=== PATIENT | female | born 1965 | race Caucasian/White ===

== ENCOUNTER 2024-11-17 08:01 | Inpatient (IN) | payer MEDICAID ==
[~2024-11-17] VITALS: Ht 152.4 cm; Wt 87.6 kg
[2024-11-17] MEDS ORDERED: nitroGLYCERIN 0.4mg SUBLingual tab SL PRN (08:30)
[2024-11-17 08:43] LABS: LYMPHOCYTES # (AUTO) 0.1 X10'3 (1.1-4.8); MEAN CORPUSCULAR HGB CONC 33.3 g/dL (33.0-36.5); WHITE BLOOD COUNT 1.9 X10'3 (4.5-11.0)
[2024-11-17 08:46] LABS: BASOPHILS % (AUTO) 0.2 % (0-1); EOSINOPHILS % (AUTO) 0.1 % (0-6); HEMOGLOBIN 17.3 g/dl (12.0-16.0); LYMPHOCYTES % (AUTO) 6.7 % (21-51); MEAN PLATELET VOLUME 7.9 FL (7.4-10.4); MONOCYTES % (AUTO) 0.5 % (2-12); NEUTROPHILS # (AUTO) 1.8 X10'3 (1.8-7.7); NEUTROPHILS % (AUTO) 92.5 % (42-75); PLATELET COUNT 265 X10'3 (140-440); RED BLOOD COUNT 5.98 X10'6 (4.20-5.60); RED CELL DISTRIBUTION WIDTH 14.3 % (11.5-14.5)
[2024-11-17] MEDS ORDERED: PRAM0.5T12 PO (09:00)
[2024-11-17] MEDS ORDERED: LISI40TA13 PO (09:00)
[2024-11-17] MEDS ORDERED: SEMA1.7P SQ (09:00)
[2024-11-17] MEDS ORDERED: PARO30TA4 PO (09:00)
[2024-11-17] MEDS ORDERED: GABA-530 PO (09:00)
[2024-11-17] MEDS ORDERED: HYDR12.55 PO (09:00)
[2024-11-17] MEDS ORDERED: CYCL-920 PO (09:00)
[2024-11-17] MEDS ORDERED: ASPI-611 PO (09:00)
[2024-11-17 09:03] LABS: ALBUMIN 4.3 G/DL (3.4-5.0); ANION GAP 12 (8-16); BLOOD UREA NITROGEN 17 MG/DL (7-18); BUN/CREATININE RATIO 18.1 (10.0-20.0); CALCIUM 9.6 MG/DL (8.5-10.1); CHLORIDE 101 MMOL/L (99-107); CREATININE 0.94 MG/DL (0.40-0.90); GLUCOSE 108 MG/DL (70-104); MAGNESIUM 1.7 MG/DL (1.5-2.4); POTASSIUM 3.3 MMOL/L (3.5-5.1); PRO BRAIN NATRIURETIC PEPTIDE 61 PG/ML (0-125); SODIUM 141 MMOL/L (135-145); TOTAL CARBON DIOXIDE 27.6 MMOL/L (24-32); eCRCL 46 ML/MIN; eGFR 61 ML/MIN
[2024-11-17] MEDS: metoprolol tartrate 50mg tablet PO ONE (09:07)
[2024-11-17] MEDS: aspirin 81mg tab.chew PO ONE (09:08)
[2024-11-17] MEDS: nitroGLYCERIN 0.4mg SUBLingual tab SL PRN (09:15)
[2024-11-17] MEDS: aspirin 325mg tablet, delayed-release (Ecotrin) PO ONE (09:20)
[2024-11-17 09:40] LABS: TOTAL CELLS COUNTED 100
[2024-11-17 09:41] LABS: PLATELET ESTIMATE NORMAL
[2024-11-17] MEDS: ondansetron 4mg rapidly disintigrating tab PO ONE (10:01)
[2024-11-17 10:18] LABS: ALANINE AMINOTRANSFERASE 888 U/L (12-78); ALBUMIN/GLOBULIN RATIO 1.2 (1.1-1.5); ALKALINE PHOSPHATASE 229 IU/L (46-116); BILIRUBIN,TOTAL 3.1 MG/DL (0.1-1.0); TOTAL PROTEIN 7.8 G/DL (6.4-8.2)
[2024-11-17 10:58] LABS: ASPARTATE AMINO TRANSFERASE 2165 U/L (10-37)
[2024-11-17] MEDS: normal saline 1000ml 1,000 ML IV ONE ×2 (12:11→17:04)
[2024-11-17] MEDS: piperacillin/tazo 3.375gm/50ml 50 ML IV ONE (12:12)
[2024-11-17] MEDS: acetaminophen 325mg tablet PO ONE (13:30)
[2024-11-17] MEDS ORDERED: iohexol 300mg/ml 100ml inj. ONE (15:19)
[2024-11-17 15:59] LABS: ALANINE AMINOTRANSFERASE 999 U/L (12-78); ALBUMIN 3.2 G/DL (3.4-5.0); ALBUMIN/GLOBULIN RATIO 1.2 (1.1-1.5); ALKALINE PHOSPHATASE 173 IU/L (46-116); ANION GAP 9 (8-16); BILIRUBIN,TOTAL 3.7 MG/DL (0.1-1.0); BLOOD UREA NITROGEN 22 MG/DL (7-18); BUN/CREATININE RATIO 19.5 (10.0-20.0); CALCIUM 8.4 MG/DL (8.5-10.1); CHLORIDE 106 MMOL/L (99-107); CREATININE 1.13 MG/DL (0.40-0.90); GLUCOSE 123 MG/DL (70-104); SODIUM 142 MMOL/L (135-145); TOTAL CARBON DIOXIDE 27.1 MMOL/L (24-32); TOTAL PROTEIN 5.9 G/DL (6.4-8.2); eCRCL 38 ML/MIN; eGFR 49 ML/MIN
[2024-11-17 16:04] LABS: ASPARTATE AMINO TRANSFERASE 1718 U/L (10-37)
[2024-11-17] MEDS ORDERED: magnesium hydroxide 30ml (MOM) UD suspension PO PRN (17:25)
[2024-11-17] MEDS ORDERED: acetaminophen 325mg tablet PO PRN ×3 (17:25→20:25)
[2024-11-17] MEDS ORDERED: magnesium sulf-water 2g/50mL 50 ML IV PRN (17:25)
[2024-11-17] MEDS ORDERED: potassium Cl 40MEQ/1/2NS 520ml 520 ML IV PRN (17:25)
[2024-11-17] MEDS ORDERED: ondansetron 4mg rapidly disintigrating tab PO PRN (17:25)
[2024-11-17] MEDS ORDERED: magnesium sulf-water 4G/100mL 100 ML IV PRN (17:25)
[2024-11-17] MEDS ORDERED: potassium Cl 20 mEq SR tablet PO PRN (17:25)
[2024-11-17] MEDS: potassium cl 20mEq in 1/2 NS 1,000 ML IV SCH (17:25)
[2024-11-17] MEDS ORDERED: diphenhydrAMINE 50 mg/ml inj IV PRN (17:25)
[2024-11-17] MEDS ORDERED: magnesium Cl slow-release 64mg tablet PO PRN (17:25)
[2024-11-17] MEDS ORDERED: ondansetron/PF 4mg/2ml inj IV PRN (17:25)
[2024-11-17] MEDS ORDERED: morphine 2 MG/ML inj. syringe IV PRN ×2 (17:25)
[2024-11-17] MEDS ORDERED: mag hydrox/Alum hydrox/simeth 30ml oral suspension PO PRN (17:25)
[2024-11-17] MEDS ORDERED: bisacodyl 10mg suppository rectal RC PRN (17:25)
[2024-11-17] MEDS ORDERED: HYDROcodone/acetaminophen 5mg/325mg tablet PO PRN (17:25)
[2024-11-17] MEDS ORDERED: diphenhydrAMINE 25mg capsule PO PRN (17:25)
[2024-11-17] MEDS ORDERED: HYDROcodone/acetaminophen 10/325mg tab PO PRN (17:25)
[2024-11-17 18:13] LABS: BILIRUBIN,URINE MODERATE (Neg); CLARITY,URINE SLIGHTLY CLOUDY (Clear); GLUCOSE, URINE NEGATIVE (Neg); KETONES,URINE TRACE mg/dl (Neg); LEUKOCYTE ESTERASE ,URINE NEGATIVE (Neg); NITRITES, URINE NEGATIVE (Neg); OCCULT BLOOD,URINE NEGATIVE (Neg); PROTEIN,URINE 100 mg/dl (Neg)
[2024-11-17 18:17] LABS: URINE AMPHETAMINE SCREEN NEGATIVE (Neg); URINE BARBITUATE SCREEN NEGATIVE (Neg); URINE BENZODIAZEPINES SCREEN NEGATIVE (Neg); URINE CANNABINOID SCREEN POSITIVE (Neg); URINE COCAINE SCREEN NEGATIVE (Neg); URINE METHADONE SCREEN NEGATIVE (Neg); URINE OPIATE SCREEN NEGATIVE (Neg); URINE PHENCYCLIDINE SCREEN NEGATIVE (Neg)
[2024-11-17 18:25] LABS: COLOR,URINE DARK YELLOW (Yellow); UA COLLECTION TYPE NON-SPECIFIED
[2024-11-17 18:26] LABS: BACTERIA,URINE 1+ /HPF (Neg); RENAL CELLS, URINE FEW /HPF; SQUAMOUS EPITHELIAL CELL,UR MANY /LPF (FEW); TRANSITIONAL EPI CELLS,URINE FEW /HPF; WBC,URINE 0-4 /HPF (0-4)
[2024-11-17 18:27] LABS: MUCUS STRANDS MODERATE /LPF (Neg)
[2024-11-17 18:28] LABS: APTT 26 SECONDS (22-32); INR 1.1 INR; PROTHROMBIN TIME 11.9 SECONDS (9.0-12.0)
[2024-11-17 18:39] LABS: HEMOGLOBIN A1C 5.5 % (4.5-6.2)
[2024-11-17 18:48] LABS: ACETAMINOPHEN 2.6 UG/ML (10-30); ALANINE AMINOTRANSFERASE 940 U/L (12-78); ALBUMIN 2.9 G/DL (3.4-5.0); ALBUMIN/GLOBULIN RATIO 1.1 (1.1-1.5); ALKALINE PHOSPHATASE 153 IU/L (46-116); BILIRUBIN,TOTAL 3.9 MG/DL (0.1-1.0); CREATINE KINASE 82 U/L (26-192); FERRITIN 455 NG/ML (8-252); LIPASE 39 U/L (16-77); MAGNESIUM 2.1 MG/DL (1.5-2.4); PRO BRAIN NATRIURETIC PEPTIDE 579 PG/ML (0-125); THYROID STIMULATING HORMONE 0.81 ulU/ml (0.34-4.50); TOTAL PROTEIN 5.6 G/DL (6.4-8.2)
[2024-11-17 18:52] LABS: ASPARTATE AMINO TRANSFERASE 1465 U/L (10-37)
[2024-11-17 18:59] LABS: HIV ANTIBODY 1&2 RAPID NON-REACTIVE (Neg)
[2024-11-17 19:15] LABS: C-REACTIVE PROTEIN 8.19 MG/DL (0.0-0.5); LACTATE DEHYDROGENASE 563 U/L (81-234)
[2024-11-17] MEDS: normal saline 1000ml 1,000 ML IV SCH (19:55)
[2024-11-17 20:00] VITALS: RESP 19; O2SAT 97
[2024-11-17] MEDS: K and/or MAG REPLACEMENT MC SCH (20:27)
[2024-11-17] MEDS: piperacillin/tazo 4.5gm/100ml 100 ML IV SCH (20:32)
[2024-11-17] MEDS: docusate sod 100mg capsule PO SCH (20:32)
[2024-11-17] MEDS: heparin, porcine 5000 units/ml vial SQ SCH (20:32)
[2024-11-17 20:37] LABS: TOTAL CELLS COUNTED 100
[2024-11-17] MEDS: acetaminophen 325mg tablet PO PRN (20:41)
[2024-11-17 22:00] VITALS: BP 120/63; PULSE 88; RESP 14; TEMP 97.8; O2SAT 97
[2024-11-17] MEDS ORDERED: pramipexole 0.25mg tablet PO PRN (22:40)
[2024-11-17] MEDS: temazepam 15mg capsule PO PRN (23:02)
[2024-11-17] MEDS: gabapentin 100mg capsule PO SCH (23:12)
[2024-11-17] MEDS: lisinopril 20mg tablet PO SCH (23:13)
[2024-11-17] MEDS: PARoxetine 10mg tablet PO SCH (23:14)
[2024-11-18 02:00] VITALS: BP 110/68; PULSE 69; RESP 19; TEMP 98; O2SAT 98
[2024-11-18 06:30] VITALS: BP 104/68; PULSE 80; RESP 20; TEMP 97.8; O2SAT 96
[2024-11-18 07:54] LABS: BASOPHILS % (AUTO) 0.1 % (0-1); EOSINOPHILS # (AUTO) 0.1 X10'3 (0-0.9); EOSINOPHILS % (AUTO) 0.7 % (0-6); HEMATOCRIT 37.3 % (35.0-45.0); LYMPHOCYTES # (AUTO) 0.4 X10'3 (1.1-4.8); LYMPHOCYTES % (AUTO) 4.5 % (21-51); MEAN CORPUSCULAR HEMOGLOBIN 28.9 PG (27.0-31.0); MEAN CORPUSCULAR VOLUME 87.6 FL (78-98); MEAN PLATELET VOLUME 8.1 FL (7.4-10.4); MONOCYTES # (AUTO) 0.5 X10'3 (0-0.9); NEUTROPHILS # (AUTO) 8.1 X10'3 (1.8-7.7); NEUTROPHILS % (AUTO) 89.7 % (42-75); PLATELET COUNT 180 X10'3 (140-440); RED BLOOD COUNT 4.25 X10'6 (4.20-5.60); RED CELL DISTRIBUTION WIDTH 14.5 % (11.5-14.5); WHITE BLOOD COUNT 9.1 X10'3 (4.5-11.0)
[2024-11-18 07:56] LABS: HEMOGLOBIN 12.3 g/dl (12.0-16.0)
[2024-11-18 08:16] LABS: ALANINE AMINOTRANSFERASE 641 U/L (12-78); ALBUMIN 2.6 G/DL (3.4-5.0); ALKALINE PHOSPHATASE 104 IU/L (46-116); ANION GAP 7 (8-16); ASPARTATE AMINO TRANSFERASE 564 U/L (10-37); BILIRUBIN,TOTAL 4.4 MG/DL (0.1-1.0); BLOOD UREA NITROGEN 14 MG/DL (7-18); BUN/CREATININE RATIO 15.9 (10.0-20.0); CALCIUM 7.5 MG/DL (8.5-10.1); CHLORIDE 108 MMOL/L (99-107); CREATININE 0.88 MG/DL (0.40-0.90); GLUCOSE 94 MG/DL (70-104); HDL CHOLESTEROL 48 MG/DL (35-60); LDL CHOLESTEROL 29 MG/DL (50-100); MAGNESIUM 1.7 MG/DL (1.5-2.4); POTASSIUM 3.4 MMOL/L (3.5-5.1); SODIUM 141 MMOL/L (135-145); TOTAL CARBON DIOXIDE 25.8 MMOL/L (24-32); eCRCL 49 ML/MIN; eGFR 66 ML/MIN
[2024-11-18 08:17] LABS: CHOL/HDL RATIO 1.7 (0.00-4.99); CHOLESTEROL 82 MG/DL (0-200); TOTAL PROTEIN 5.3 G/DL (6.4-8.2); TRIGLYCERIDES 68 MG/DL (20-135)
[2024-11-18] MEDS: pantoprazole 40MG/NS 100ML BAG 100 ML IV SCH (09:08)
[2024-11-18] MEDS: aspirin 81mg, enteric-coated 1 TAB TABLET.DR PO SCH (09:12)
[2024-11-18] MEDS: HYDROchlorothiazide 12.5mg capsule PO SCH (09:12)
[2024-11-18] MEDS: cyclobenzaprine 10mg tablet PO SCH (09:14)
[2024-11-18 11:00] VITALS: BP 99/49; PULSE 83; RESP 16; TEMP 97.6; O2SAT 97
[2024-11-18] MEDS: potassium Cl 20 mEq SR tablet PO PRN (11:13)
[2024-11-18] MEDS ORDERED: SIMV-42 PO (12:24)
[2024-11-18 15:00] VITALS: BP 112/66; PULSE 84; RESP 19; TEMP 98.2; O2SAT 99
[2024-11-18 18:00] VITALS: BP 120/56; PULSE 83; RESP 19; TEMP 98.2; O2SAT 98
[2024-11-18] MEDS: pramipexole 0.25mg tablet PO SCH (21:40)
[2024-11-18 22:00] VITALS: BP 127/71; PULSE 77; RESP 18; TEMP 97.9; O2SAT 96
[2024-11-19 02:00] VITALS: BP 148/71; PULSE 77; RESP 20; TEMP 97.6; O2SAT 100
[2024-11-19 06:10] LABS: BASOPHILS % (AUTO) 0.3 % (0-1); EOSINOPHILS # (AUTO) 0.2 X10'3 (0-0.9); EOSINOPHILS % (AUTO) 2.5 % (0-6); HEMATOCRIT 37.7 % (35.0-45.0); HEMOGLOBIN 12.5 g/dl (12.0-16.0); LYMPHOCYTES # (AUTO) 0.7 X10'3 (1.1-4.8); LYMPHOCYTES % (AUTO) 9.8 % (21-51); MEAN CORPUSCULAR HEMOGLOBIN 28.8 PG (27.0-31.0); MEAN CORPUSCULAR HGB CONC 33.2 g/dL (33.0-36.5); MEAN CORPUSCULAR VOLUME 86.6 FL (78-98); MEAN PLATELET VOLUME 8.5 FL (7.4-10.4); MONOCYTES # (AUTO) 0.4 X10'3 (0-0.9); MONOCYTES % (AUTO) 6.2 % (2-12); NEUTROPHILS # (AUTO) 5.7 X10'3 (1.8-7.7); NEUTROPHILS % (AUTO) 81.2 % (42-75); PLATELET COUNT 151 X10'3 (140-440); RED BLOOD COUNT 4.35 X10'6 (4.20-5.60); RED CELL DISTRIBUTION WIDTH 14.5 % (11.5-14.5)
[2024-11-19 06:30] VITALS: BP 157/84; PULSE 80; RESP 20; TEMP 98; O2SAT 97
[2024-11-19 06:40] LABS: ALANINE AMINOTRANSFERASE 420 U/L (12-78); ALBUMIN 2.5 G/DL (3.4-5.0); ALBUMIN/GLOBULIN RATIO 0.9 (1.1-1.5); ALKALINE PHOSPHATASE 122 IU/L (46-116); ANION GAP 7 (8-16); ASPARTATE AMINO TRANSFERASE 261 U/L (10-37); BILIRUBIN,TOTAL 2.8 MG/DL (0.1-1.0); BLOOD UREA NITROGEN 9 MG/DL (7-18); BUN/CREATININE RATIO 11.4 (10.0-20.0); CHLORIDE 106 MMOL/L (99-107); CREATININE 0.79 MG/DL (0.40-0.90); GLUCOSE 86 MG/DL (70-104); MAGNESIUM 1.9 MG/DL (1.5-2.4); POTASSIUM 3.8 MMOL/L (3.5-5.1); SODIUM 139 MMOL/L (135-145); TOTAL CARBON DIOXIDE 26.1 MMOL/L (24-32); TOTAL PROTEIN 5.4 G/DL (6.4-8.2); eCRCL 54 ML/MIN; eGFR 74 ML/MIN
[2024-11-19 09:09] LABS: TRANSFERRIN 258 mg/dL (192-364)
[2024-11-19 11:00] VITALS: BP 152/82; PULSE 71; RESP 17; TEMP 97.4; O2SAT 98
[2024-11-19 12:46] LABS: HBSAG SCREEN Negative (Negative); HEP A AB, IGM Negative (Negative); HEP B CORE AB, IGM Negative (Negative); HEP B CORE AB, TOT Negative (Negative); HEPATITIS C VIRUS ANTIBODY Non Reactive (Non Reactive)
[2024-11-19 15:00] VITALS: BP 134/67; PULSE 67; RESP 18; TEMP 97.5; O2SAT 96
[2024-11-19 18:00] VITALS: BP 143/72; PULSE 72; RESP 10; TEMP 98.5; O2SAT 99
[2024-11-19 22:00] VITALS: BP 121/61; PULSE 78; RESP 16; TEMP 97.2; O2SAT 99
[2024-11-20] VITALS (7 sets, daily range): BP systolic 113–174; BP diastolic 79–86; PULSE 70–84; RESP 12–22; TEMP 97–97.6; O2SAT 96–99
[2024-11-20 06:28] LABS: BASOPHILS % (AUTO) 0.5 % (0-1); EOSINOPHILS # (AUTO) 0.2 X10'3 (0-0.9); EOSINOPHILS % (AUTO) 2.9 % (0-6); HEMATOCRIT 39.4 % (35.0-45.0); HEMOGLOBIN 13.1 g/dl (12.0-16.0); LYMPHOCYTES # (AUTO) 0.8 X10'3 (1.1-4.8); LYMPHOCYTES % (AUTO) 13.4 % (21-51); MEAN CORPUSCULAR HEMOGLOBIN 29.1 PG (27.0-31.0); MEAN CORPUSCULAR HGB CONC 33.3 g/dL (33.0-36.5); MEAN CORPUSCULAR VOLUME 87.2 FL (78-98); MEAN PLATELET VOLUME 8.9 FL (7.4-10.4); MONOCYTES # (AUTO) 0.5 X10'3 (0-0.9); MONOCYTES % (AUTO) 9.5 % (2-12); NEUTROPHILS # (AUTO) 4.2 X10'3 (1.8-7.7); NEUTROPHILS % (AUTO) 73.7 % (42-75); PLATELET COUNT 174 X10'3 (140-440); RED BLOOD COUNT 4.52 X10'6 (4.20-5.60); RED CELL DISTRIBUTION WIDTH 14.5 % (11.5-14.5); WHITE BLOOD COUNT 5.7 X10'3 (4.5-11.0)
[2024-11-20 08:00] LABS: ALANINE AMINOTRANSFERASE 318 U/L (12-78); ALBUMIN 2.6 G/DL (3.4-5.0); ALBUMIN/GLOBULIN RATIO 0.8 (1.1-1.5); ALKALINE PHOSPHATASE 172 IU/L (46-116); ANION GAP 8 (8-16); ASPARTATE AMINO TRANSFERASE 125 U/L (10-37); BILIRUBIN,TOTAL 2.1 MG/DL (0.1-1.0); BLOOD UREA NITROGEN 9 MG/DL (7-18); BUN/CREATININE RATIO 13.2 (10.0-20.0); CALCIUM 8.7 MG/DL (8.5-10.1); CHLORIDE 105 MMOL/L (99-107); CREATININE 0.68 MG/DL (0.40-0.90); GLUCOSE 98 MG/DL (70-104); MAGNESIUM 1.9 MG/DL (1.5-2.4); POTASSIUM 3.9 MMOL/L (3.5-5.1); SODIUM 138 MMOL/L (135-145); TOTAL CARBON DIOXIDE 25.1 MMOL/L (24-32); TOTAL PROTEIN 5.8 G/DL (6.4-8.2); eCRCL 63 ML/MIN; eGFR 88 ML/MIN
[2024-11-20] MEDS: sincalide inj 1.7 MCG in normal saline 100ml IV soln 100 ML IV ONE (11:27)
[2024-11-20] MEDS: sincalide inj 1.7 MCG in normal saline 100ml IV soln 98.3 ML IV ONE (11:32)
[2024-11-21] VITALS (16 sets, daily range): BP systolic 124–178; BP diastolic 53–90; PULSE 67–84; RESP 10–17; TEMP 97–97.9; O2SAT 92–100
[2024-11-21 05:08] LABS: COPPER/CRT RATIO 170 ug/g creat (0-49)
[2024-11-21 06:19] LABS: BASOPHILS % (AUTO) 0.8 % (0-1); EOSINOPHILS # (AUTO) 0.1 X10'3 (0-0.9); EOSINOPHILS % (AUTO) 3.2 % (0-6); HEMATOCRIT 43.7 % (35.0-45.0); HEMOGLOBIN 14.5 g/dl (12.0-16.0); MEAN CORPUSCULAR HEMOGLOBIN 28.8 PG (27.0-31.0); MEAN CORPUSCULAR HGB CONC 33.1 g/dL (33.0-36.5); MEAN PLATELET VOLUME 8.3 FL (7.4-10.4); MONOCYTES # (AUTO) 0.8 X10'3 (0-0.9); MONOCYTES % (AUTO) 16.3 % (2-12); NEUTROPHILS # (AUTO) 2.7 X10'3 (1.8-7.7); NEUTROPHILS % (AUTO) 58.7 % (42-75); PLATELET COUNT 217 X10'3 (140-440); RED BLOOD COUNT 5.02 X10'6 (4.20-5.60); RED CELL DISTRIBUTION WIDTH 14.8 % (11.5-14.5); WHITE BLOOD COUNT 4.7 X10'3 (4.5-11.0)
[2024-11-21 07:40] LABS: PLATELET ESTIMATE NORMAL; TOTAL CELLS COUNTED 100
[2024-11-21 08:32] LABS: ALANINE AMINOTRANSFERASE 247 U/L (12-78); ALBUMIN 2.7 G/DL (3.4-5.0); ALBUMIN/GLOBULIN RATIO 0.8 (1.1-1.5); ALKALINE PHOSPHATASE 182 IU/L (46-116); ASPARTATE AMINO TRANSFERASE 83 U/L (10-37); BILIRUBIN,TOTAL 1.5 MG/DL (0.1-1.0); CALCIUM 8.7 MG/DL (8.5-10.1); MAGNESIUM 1.9 MG/DL (1.5-2.4); TOTAL CARBON DIOXIDE 28.7 MMOL/L (24-32); TOTAL PROTEIN 6.3 G/DL (6.4-8.2)
[2024-11-21 08:37] LABS: ANION GAP 7 (8-16); BLOOD UREA NITROGEN 8 MG/DL (7-18); BUN/CREATININE RATIO 12.7 (10.0-20.0); CHLORIDE 104 MMOL/L (99-107); CREATININE 0.63 MG/DL (0.40-0.90); GLUCOSE 96 MG/DL (70-104); POTASSIUM 3.5 MMOL/L (3.5-5.1); SODIUM 140 MMOL/L (135-145); eCRCL 68 ML/MIN; eGFR > 90 ML/MIN
[2024-11-21] MEDS ORDERED: HYDROmorphone/PF 0.2 MG/ML SYRINGE IV PRN (18:30)
[2024-11-21] MEDS ORDERED: meperidine/PF 25mg/ml syringe IV PRN ×2 (18:30)
[2024-11-21] MEDS ORDERED: ondansetron/PF 4mg/2ml inj IV PRN (18:30)
[2024-11-21] MEDS ORDERED: BUPIVAcaine 2.5mg/ml inj 50ml vial (contains preservative) ONE (18:53)
[2024-11-21] MEDS ORDERED: fentaNYL /PF 50mcg/ml 5ml ampule ONE (19:43)
[2024-11-21] MEDS ORDERED: rocuronium 10mg/ml inj IV ONE ×2 (19:43→21:25)
[2024-11-21] MEDS ORDERED: midazolam 1 mg/ML 2ml injection ONE (19:43)
[2024-11-21] MEDS ORDERED: propofol inj 20 ML IV ONE (19:43)
[2024-11-21] MEDS ORDERED: dexamethasone sod phosphate 4mg/ml inj. ONE (20:20)
[2024-11-21] MEDS ORDERED: ondansetron/PF 4mg/2ml inj ONE (20:20)
[2024-11-21] MEDS ORDERED: neostigmine methylsulfate 1 MG/ML 10ml vial ONE (21:25)
[2024-11-21] MEDS ORDERED: glycopyrrolate 0.2mg/ml inj ONE (21:26)
[2024-11-21] MEDS ORDERED: sugammadex 200mg/2ml injection IV ONE (21:46)
[2024-11-21] MEDS ORDERED: naloxone 0.4 mg/ml inj IV PRN (21:50)
[2024-11-21] MEDS: HYDROmorphone/PF 0.2 MG/ML SYRINGE IV PRN (22:18)
[2024-11-21] MEDS: acetaminophen 1,000mg/100ml IV 100 ML IV ONE (22:29)
[2024-11-21] MEDS: labetalol 20mg/4ml (5mg/ml) syringe IV PRN (22:30)
[2024-11-21] MEDS: meperidine/PF 25mg/ml syringe IV PRN (22:31)
[2024-11-22] VITALS (12 sets, daily range): BP systolic 106–144; BP diastolic 53–74; PULSE 57–95; RESP 11–25; TEMP 97–98.1; O2SAT 93–98
[2024-11-22] MEDS: oxyCODONE/APAP 5-325mg tablet PO PRN (00:25)
[2024-11-22] MEDS: traMADol 50MG tablet PO PRN (03:15)
[2024-11-22 06:12] LABS: BASOPHILS % (AUTO) 0.1 % (0-1); EOSINOPHILS % (AUTO) 0.2 % (0-6); HEMOGLOBIN 14.1 g/dl (12.0-16.0); LYMPHOCYTES % (AUTO) 7.9 % (21-51); MEAN PLATELET VOLUME 8.7 FL (7.4-10.4); MONOCYTES # (AUTO) 0.8 X10'3 (0-0.9); MONOCYTES % (AUTO) 6.2 % (2-12); NEUTROPHILS # (AUTO) 11.1 X10'3 (1.8-7.7); NEUTROPHILS % (AUTO) 85.6 % (42-75); PLATELET COUNT 206 X10'3 (140-440); RED BLOOD COUNT 4.51 X10'6 (4.20-5.60); RED CELL DISTRIBUTION WIDTH 14.7 % (11.5-14.5)
[2024-11-22 06:39] LABS: HEMATOCRIT 43.2 % (35.0-45.0); MEAN CORPUSCULAR HEMOGLOBIN 28.5 PG (27.0-31.0); MEAN CORPUSCULAR HGB CONC 32.7 g/dL (33.0-36.5); MEAN CORPUSCULAR VOLUME 87.1 FL (78-98)
[2024-11-22 06:44] LABS: ALANINE AMINOTRANSFERASE 232 U/L (12-78); ALBUMIN 2.6 G/DL (3.4-5.0); ALBUMIN/GLOBULIN RATIO 0.7 (1.1-1.5); ALKALINE PHOSPHATASE 175 IU/L (46-116); ANION GAP 8 (8-16); ASPARTATE AMINO TRANSFERASE 121 U/L (10-37); BILIRUBIN,TOTAL 1.3 MG/DL (0.1-1.0); BLOOD UREA NITROGEN 8 MG/DL (7-18); BUN/CREATININE RATIO 9.5 (10.0-20.0); CALCIUM 8.6 MG/DL (8.5-10.1); CHLORIDE 100 MMOL/L (99-107); CREATININE 0.84 MG/DL (0.40-0.90); GLUCOSE 147 MG/DL (70-104); POTASSIUM 4.7 MMOL/L (3.5-5.1); SODIUM 136 MMOL/L (135-145); TOTAL CARBON DIOXIDE 27.8 MMOL/L (24-32); TOTAL PROTEIN 6.3 G/DL (6.4-8.2); eCRCL 51 ML/MIN; eGFR 69 ML/MIN
[2024-11-22] MEDS: ringers solution, lacted 1,000 ML IV SCH (07:27)
[2024-11-22] MEDS: pantoprazole 40mg Tablet.DR PO SCH (07:29)
[2024-11-23 02:00] VITALS: BP 111/59; PULSE 73; RESP 23; TEMP 96.9; O2SAT 95
[2024-11-23 06:00] VITALS: BP 129/69; PULSE 74; RESP 16; TEMP 97.6; O2SAT 96
[2024-11-23 07:44] LABS: BASOPHILS % (AUTO) 0.4 % (0-1); EOSINOPHILS # (AUTO) 0.1 X10'3 (0-0.9); EOSINOPHILS % (AUTO) 0.6 % (0-6); HEMATOCRIT 35.5 % (35.0-45.0); HEMOGLOBIN 11.9 g/dl (12.0-16.0); LYMPHOCYTES # (AUTO) 1.7 X10'3 (1.1-4.8); LYMPHOCYTES % (AUTO) 16.6 % (21-51); MEAN CORPUSCULAR HEMOGLOBIN 28.9 PG (27.0-31.0); MEAN CORPUSCULAR HGB CONC 33.6 g/dL (33.0-36.5); MEAN CORPUSCULAR VOLUME 85.9 FL (78-98); MONOCYTES # (AUTO) 1.3 X10'3 (0-0.9); MONOCYTES % (AUTO) 12.9 % (2-12); NEUTROPHILS % (AUTO) 69.5 % (42-75); PLATELET COUNT 223 X10'3 (140-440); RED BLOOD COUNT 4.14 X10'6 (4.20-5.60); RED CELL DISTRIBUTION WIDTH 15.2 % (11.5-14.5); WHITE BLOOD COUNT 10.1 X10'3 (4.5-11.0)
[2024-11-23 07:56] VITALS: RESP 18
[2024-11-23 08:18] LABS: ALANINE AMINOTRANSFERASE 151 U/L (12-78); ALBUMIN 2.5 G/DL (3.4-5.0); ALBUMIN/GLOBULIN RATIO 0.8 (1.1-1.5); ALKALINE PHOSPHATASE 135 IU/L (46-116); ANION GAP 5 (8-16); ASPARTATE AMINO TRANSFERASE 48 U/L (10-37); BILIRUBIN,TOTAL 0.8 MG/DL (0.1-1.0); BLOOD UREA NITROGEN 6 MG/DL (7-18); BUN/CREATININE RATIO 7.9 (10.0-20.0); CALCIUM 8.4 MG/DL (8.5-10.1); CHLORIDE 104 MMOL/L (99-107); CREATININE 0.76 MG/DL (0.40-0.90); POTASSIUM 3.2 MMOL/L (3.5-5.1); SODIUM 139 MMOL/L (135-145); TOTAL CARBON DIOXIDE 30.4 MMOL/L (24-32); TOTAL PROTEIN 5.8 G/DL (6.4-8.2); eCRCL 57 ML/MIN; eGFR 78 ML/MIN
[2024-11-23 08:24] LABS: GLUCOSE 105 MG/DL (70-104)
[2024-11-23] MEDS ORDERED: magnesium sulf-water 4G/100mL 100 ML IV PRN (10:40)
[2024-11-23] MEDS ORDERED: potassium Cl 20 mEq SR tablet PO PRN (10:40)
[2024-11-23] MEDS ORDERED: potassium Cl 40MEQ/1/2NS 520ml 520 ML IV PRN (10:40)
[2024-11-23] MEDS ORDERED: magnesium sulf-water 2g/50mL 50 ML IV PRN (10:40)
[2024-11-23] MEDS ORDERED: magnesium Cl slow-release 64mg tablet PO PRN (10:40)
[2024-11-23 10:57] LABS: MAGNESIUM 1.6 MG/DL (1.5-2.4)
[2024-11-23] MEDS: potassium Cl 20 mEq SR tablet PO PRN (10:58)
[2024-11-23] MEDS: oxyCODONE/APAP 5-325mg tablet PO ONE (10:59)
[2024-11-23] MEDS ORDERED: MAGN400O6 PO (14:38)
[2024-11-23] MEDS ORDERED: PER5325T PO (14:38)
[2024-11-23 15:01] VITALS: RESP 16
[2024-11-23] MEDS: oxyCODONE/APAP 10/325mg tablet PO PRN (15:01)
[2024-11-23] MEDS: potassium Cl 20 mEq SR tablet PO ONE (15:02)
[2024-11-23] MEDS: magnesium hydroxide 30ml (MOM) UD suspension PO SCH (15:02)
[2024-11-23] MEDS ORDERED: POTA-192 PO (18:51)
[2024-11-23] MEDS ORDERED: K and/or MAG REPLACEMENT MC SCH (20:00)
== END 2024-11-23 16:12 | disposition home or self-care (01) | DRG 710 ==
LOC: ER 08:02 → ED HOLD 17:31 → PCU 3S 22:01
PROVIDERS: ADMIT Family Medicine; ATTEND Family Medicine
PROC: 8E0W4CZ Robotic Assisted Procedure of Trunk Region, Percutaneous Endoscopic Approach (ICD-10-PCS; 2024-11-21)
PROC: 0FT44ZZ Resection of Gallbladder, Percutaneous Endoscopic Approach (ICD-10-PCS; principal; 2024-11-21 19:36)
DX: A41.9 Sepsis, unspecified organism (principal); N17.9 Acute kidney failure, unspecified; K80.12 Calculus of gallbladder with acute and chronic cholecystitis without obstruction; E87.20 Acidosis, unspecified; K76.0 Fatty (change of) liver, not elsewhere classified; B17.9 Acute viral hepatitis, unspecified; E66.9 Obesity, unspecified; D75.1 Secondary polycythemia; R79.89 Other specified abnormal findings of blood chemistry; E86.0 Dehydration; E87.6 Hypokalemia; G89.4 Chronic pain syndrome; N18.9 Chronic kidney disease, unspecified; I12.9 Hypertensive chronic kidney disease with stage 1 through stage 4 chronic kidney disease, or unspecified chronic kidney disease; Z79.82 Long term (current) use of aspirin; Z79.899 Other long term (current) drug therapy; Z68.36 Body mass index [BMI] 36.0-36.9, adult; Z88.5 Allergy status to narcotic agent
CPT/HCPCS: 36415; 71045; 74177; 74181; 76700; 78227; 80053; 80061; 80076; 80305; 80329; 81001; 82140; 82390; 82525; 82550; 82570; 82728; 83036; 83605; 83615; 83690; 83735; 83880; 84100; 84443; 84466; 84484; 85007; 85025; 85610; 85651; 85730; 86140; 86703; 86704; 86705; 86709; 86803; 87040; 87081; 87340; 87522; 93005; 93306; 93978; A4215; A4615; A4618; A6209; A6402; A6449; A7000; A9537; G0378; J0131; J1100; J1171; J1644; J2175; J2250; J2405; J2470; J2543; J2704; J2710; J2805; J3010; J3490; J7030; J7120; Q9967

== ENCOUNTER 2024-12-10 09:28 | Emergency (ER) | payer MEDICAID ==
[~2024-12-10] VITALS: Ht 152.4 cm; Wt 82.6 kg
[~2024-12-10 09:28] MED LIST: ASPI-611 PO; CYCL-920 PO; GABA-530 PO; HYDR12.55 PO; LISI40TA13 PO; MAGN400O6 PO; PARO30TA4 PO; PRAM0.5T12 PO; SEMA1.7P SQ; SIMV-42 PO
[2024-12-10 10:45] LABS: BASOPHILS % (AUTO) 0.6 % (0-1); EOSINOPHILS # (AUTO) 0.1 X10'3 (0-0.9); EOSINOPHILS % (AUTO) 0.7 % (0-6); HEMATOCRIT 41.9 % (35.0-45.0); LYMPHOCYTES # (AUTO) 1.8 X10'3 (1.1-4.8); LYMPHOCYTES % (AUTO) 21.5 % (21-51); MEAN CORPUSCULAR HEMOGLOBIN 28.4 PG (27.0-31.0); MEAN CORPUSCULAR HGB CONC 33.5 g/dL (33.0-36.5); MEAN PLATELET VOLUME 8.6 FL (7.4-10.4); MONOCYTES # (AUTO) 0.7 X10'3 (0-0.9); MONOCYTES % (AUTO) 8.3 % (2-12); NEUTROPHILS # (AUTO) 5.6 X10'3 (1.8-7.7); NEUTROPHILS % (AUTO) 68.9 % (42-75); PLATELET COUNT 369 X10'3 (140-440); RED BLOOD COUNT 4.93 X10'6 (4.20-5.60); RED CELL DISTRIBUTION WIDTH 13.8 % (11.5-14.5); WHITE BLOOD COUNT 8.2 X10'3 (4.5-11.0)
[2024-12-10 10:52] LABS: ALBUMIN 3.3 G/DL (3.4-5.0); ANION GAP 5 (8-16); BLOOD UREA NITROGEN 9 MG/DL (7-18); BUN/CREATININE RATIO 10.5 (10.0-20.0); CALCIUM 9.5 MG/DL (8.5-10.1); CHLORIDE 100 MMOL/L (99-107); CREATININE 0.86 MG/DL (0.40-0.90); GLUCOSE 95 MG/DL (70-104); POTASSIUM 4.6 MMOL/L (3.5-5.1); SODIUM 136 MMOL/L (135-145); TOTAL CARBON DIOXIDE 30.6 MMOL/L (24-32); eCRCL 50 ML/MIN; eGFR 67 ML/MIN
[2024-12-10] MEDS: LIDOcaine 1% W/epiNEPHrine 1:100,000 20ml vial IJ ONE (11:47)
[2024-12-10 11:59] VITALS: BP 131/87; PULSE 94; RESP 17; TEMP 97.7; O2SAT 99
== END 2024-12-10 12:01 | disposition home or self-care (01) ==
LOC: ER 09:28
DX: K91.873 Postprocedural seroma of a digestive system organ or structure following other procedure (principal); Z88.8 Allergy status to other drugs, medicaments and biological substances; Z90.49 Acquired absence of other specified parts of digestive tract; Z88.5 Allergy status to narcotic agent; Z79.82 Long term (current) use of aspirin; Z79.899 Other long term (current) drug therapy
CPT/HCPCS: 10060; 36415; 74176; 80048; 85025; 87070; 87186; 99284; A6258; A6407; A6449